=== PATIENT | male | born 1960 | race Caucasian/White ===

== ENCOUNTER 2021-08-10 22:45 | Emergency (ER) | payer OTHER, SELFPAY ==
[2021-08-10 23:41] LABS: #Basophils 0.1 thou/uL (0.0-0.2); #Eosinphils 0.4 thou/uL (0.0-0.7); #Lymphocytes 2.5 thou/uL (1.20-3.40); #Monocytes 0.9 thou/uL (0.11-0.59); #Neutrophils 5.4 thou/uL (1.40-6.50); %Basophils 1.4 % (0.0-1.0); %Eosinophils 4.3 % (0.0-10.0); %Lymphocytes 26.6 % (21.0-51.0); %Monocytes 9.5 % (0.0-10.0); %Neutrophils 58.3 % (42.0-75.0); Hemoglobin 12.9 g/dL (14.0-18.0); Mean Corpuscular HGB CONC 34.5 g/dL (32.0-36.0); Mean Corpuscular Hemoglobin 36.3 pg (27.0-31.0); Platelet Count 197 thou/uL (130-400); RBC Distribution Width 12.7 % (11.5-14.5); Red Blood Cell (RBC) Count 3.56 mill/uL (4.70-6.10); White Blood Cell (WBC) Count 9.3 thou/uL (4.8-10.8)
[2021-08-10 23:56] LABS: ALT (SGPT) 15 U/L (8-55); AST (SGOT) 37 U/L (5-34); Alcohol 373 mg/dL (Less than 10); Alkaline Phosphatase 67 U/L (40-110); Anion Gap 19 mmol/L (10-20); BUN (Urea Nitrogen) 12 mg/dL (8.4-25.7); Bilirubin, Total 0.5 mg/dL (0.2-1.2); Calc. Creatinine Clearance 0 mL/min (70-130); Calcium 8.6 mg/dL (7.8-10.44); Carbon Dioxide 24 mmol/L (23-31); Chloride 97 mmol/L (98-107); Glucose 89 mg/dL (80-115); Potassium 3.9 mmol/L (3.5-5.1); Sodium 136 mmol/L (136-145)
[2021-08-10] MEDS ORDERED: Bacitracin 1 PK ONE (23:59)
[2021-08-11 00:20] LABS: Platelet Morphology Comment Appears Adequate; RBC Morphology Normal
== END 2021-08-11 00:35 ==
LOC: BURERS 22:45
DX: S50.812A Abrasion of left forearm, initial encounter (principal); M54.50 Low back pain, unspecified; F10.129 Alcohol abuse with intoxication, unspecified; I71.4 Abdominal aortic aneurysm, without rupture; J43.9 Emphysema, unspecified; V28.0XXA Motorcycle driver injured in noncollision transport accident in nontraffic accident, initial encounter; Y90.8 Blood alcohol level of 240 mg/100 ml or more
CPT/HCPCS: 36415; 72128; 72131; 80053; 80307; 85025

== ENCOUNTER 2021-11-20 15:55 | Emergency (ER) | payer SELFPAY ==
[2021-11-20] MEDS ORDERED: Aspirin Chewable 81 MG TAB ONE (16:41)
[2021-11-20 16:44] LABS: Hemoglobin 13.1 g/dL (14.0-18.0); Mean Corpuscular HGB CONC 33.5 g/dL (32.0-36.0); Mean Corpuscular Hemoglobin 35.7 pg (27.0-31.0); Mean Platelet Volume 6.7 fL (7.4-10.4); Platelet Count 172 thou/uL (130-400); Red Blood Cell (RBC) Count 3.68 mill/uL (4.70-6.10); White Blood Cell (WBC) Count 7.2 thou/uL (4.8-10.8)
[2021-11-20 16:48] LABS: Band 5 % (5-11); Eosinophils 3 % (0-10); Lymphocytes 15 % (21-51); MDiff Complete? YES; Monocytes 22 % (0-10); Neutrophil 53 % (42-75); Reactive Lymphocytes 2 % (0-10)
[2021-11-20 16:50] LABS: ALT (SGPT) 12 U/L (8-55); AST (SGOT) 29 U/L (5-34); Albumin 3.9 g/dL (3.4-4.8); Alkaline Phosphatase 74 U/L (40-110); Anion Gap 20 mmol/L (10-20); BUN (Urea Nitrogen) 8 mg/dL (8.4-25.7); Bilirubin, Total 0.6 mg/dL (0.2-1.2); Calc. Creatinine Clearance 0 mL/min (70-130); Calcium 8.8 mg/dL (7.8-10.44); Carbon Dioxide 30 mmol/L (23-31); Chloride 90 mmol/L (98-107); Estimated GFR 61; Globulin 3.4 g/dL (2.4-3.5); Glucose 93 mg/dL (80-115); Protein, Total 7.3 g/dL (5.8-8.1); Sodium 137 mmol/L (136-145)
[2021-11-20] MEDS ORDERED: cefTRIAXone\\ROCEPHIN 2 GM VIAL ONE (17:11)
[2021-11-20] MEDS ORDERED: Furosemide 100 MG/10 ML VIAL ONE (17:11)
[2021-11-20] MEDS ORDERED: Potassium Chloride 20 MEQ TAB ONE (17:57)
[2021-11-20] MEDS ORDERED: Nitroglycerin 2% Ointment 1 INCH/1 GM Packet ONE (19:22)
[2021-11-20] MEDS ORDERED: Ketorolac Tromethamine 30 MG/ML VIAL ONE (19:22)
[2021-11-20 20:38] LABS: Troponin I 0.028 ng/mL (< 0.028)
[2021-11-21] MEDS ORDERED: Metoprolol Tartrate 5 MG/5 ML VIAL ONE (08:35)
[2021-11-21 10:41] LABS: Band 2 % (5-11); Eosinophils 3 % (0-10); Hemoglobin 13.4 g/dL (14.0-18.0); Lymphocytes 17 % (21-51); MDiff Complete? YES; Mean Corpuscular HGB CONC 34.5 g/dL (32.0-36.0); Mean Corpuscular Hemoglobin 35.8 pg (27.0-31.0); Mean Platelet Volume 7.1 fL (7.4-10.4); Monocytes 13 % (0-10); Neutrophil 64 % (42-75); Platelet Count 171 thou/uL (130-400); RBC Distribution Width 13.9 % (11.5-14.5); Red Blood Cell (RBC) Count 3.74 mill/uL (4.70-6.10); White Blood Cell (WBC) Count 6.7 thou/uL (4.8-10.8)
[2021-11-21 10:43] LABS: ALT (SGPT) 13 U/L (8-55); AST (SGOT) 27 U/L (5-34); Albumin 3.6 g/dL (3.4-4.8); Alkaline Phosphatase 69 U/L (40-110); Anion Gap 16 mmol/L (10-20); BUN (Urea Nitrogen) 12 mg/dL (8.4-25.7); Bilirubin, Total 0.5 mg/dL (0.2-1.2); Calc. Creatinine Clearance 0 mL/min (70-130); Calcium 8.6 mg/dL (7.8-10.44); Carbon Dioxide 33 mmol/L (23-31); Chloride 94 mmol/L (98-107); Estimated GFR 56; Globulin 3.2 g/dL (2.4-3.5); Glucose 111 mg/dL (80-115); Potassium 3.6 mmol/L (3.5-5.1); Protein, Total 6.8 g/dL (5.8-8.1); Sodium 139 mmol/L (136-145)
[2021-11-21] MEDS ORDERED: Magnesium 2 GM/50 ML BAG (IN WATER) ONE (11:44)
[2021-11-21] MEDS ORDERED: Acetaminophen 500 MG TAB ONE (11:48)
[2021-11-21] MEDS ORDERED: Furosemide 40 MG/4 ML VIAL ONE (15:44)
== END 2021-11-20 18:30 | disposition short-term general hospital (02) ==
LOC: BURERS 15:55
DX: I11.0 Hypertensive heart disease with heart failure (principal); I50.9 Heart failure, unspecified; L03.115 Cellulitis of right lower limb; L03.116 Cellulitis of left lower limb; E87.6 Hypokalemia; F17.210 Nicotine dependence, cigarettes, uncomplicated; Z79.899 Other long term (current) drug therapy
CPT/HCPCS: 36415; 71045; 80053; 83735; 83880; 84484; 85025; 87070; 87077; 87186; 87205; 93005; 94760; 96365; 96367; 96375; 96376; J0696; J1885; J1940

== ENCOUNTER 2023-04-29 10:54 | Emergency (ER) | payer SELFPAY ==
[2023-04-29 11:26] LABS: #Basophils 0.1 thou/uL (0.0-0.2); #Eosinphils 0.2 thou/uL (0.0-0.7); #Lymphocytes 1.8 thou/uL (1.20-3.40); #Monocytes 0.6 thou/uL (0.11-0.59); #Neutrophils 5.3 thou/uL (1.40-6.50); %Basophils 1.2 % (0.0-1.0); %Eosinophils 2.5 % (0.0-10.0); %Monocytes 7.7 % (0.0-10.0); %Neutrophils 66.7 % (42.0-75.0); Hematocrit 34.7 % (42.0-52.0); Hemoglobin 12.3 g/dL (14.0-18.0); Mean Corpuscular HGB CONC 35.3 g/dL (32.0-36.0); Mean Platelet Volume 8.9 fL (7.4-10.4); Platelet Count 142 10x3/uL (130-400); RBC Distribution Width 14.9 % (11.5-14.5); Red Blood Cell (RBC) Count 3.31 mill/uL (4.70-6.10)
[2023-04-29 11:40] LABS: ALT (SGPT) 36 U/L (8-55); AST (SGOT) 141 U/L (5-34); Albumin 3.5 g/dL (3.4-4.8); Alkaline Phosphatase 188 U/L (40-110); Anion Gap 20 mmol/L (10-20); BUN (Urea Nitrogen) Less than 4 mg/dL (8.4-25.7); Bilirubin, Total 3.7 mg/dL (0.2-1.2); Calc. Creatinine Clearance 0 mL/min (70-130); Calcium 8.1 mg/dL (7.8-10.44); Carbon Dioxide 26 mmol/L (23-31); Chloride 90 mmol/L (98-107); Estimated GFR 95; Globulin 3.1 g/dL (2.4-3.5); Glucose 112 mg/dL (80-115); Potassium 3.2 mmol/L (3.5-5.1); Protein, Total 6.6 g/dL (5.8-8.1); Sodium 133 mmol/L (136-145)
[2023-04-29 11:43] LABS: Troponin I 0.041 ng/mL (< 0.028)
[2023-04-29 11:52] LABS: MDiff Complete? YES; Macrocytosis SLIGHT = 6-15 cells (100X) (0-5/hpf); Platelet Adequacy Comment Appears Adequate
[2023-04-29] MEDS ORDERED: Aspirin Chewable 81 MG TAB ONE (12:16)
[2023-04-29] MEDS ORDERED: Furosemide 40 MG (4 mL) VIAL ONE (13:36)
[2023-04-29 14:25] LABS: Acetaminophen Less than 10 mcg/mL (10.0-30.0); Alcohol 317.8 mg/dL (Less than 10); Salicylate Less than 8.0 mg/dL (15.0-30.0)
[2023-04-29 14:43] LABS: Troponin I 0.037 ng/mL (< 0.028)
[2023-04-29] MEDS ORDERED: Acetaminophen 500 MG TAB ONE ×2 (15:07→22:30)
[2023-04-29] MEDS ORDERED: Thiamine 100 MG TAB ONE (19:52)
[2023-04-29] MEDS ORDERED: Folic Acid 1 MG TAB ONE (19:52)
== END 2023-04-29 22:45 | disposition short-term general hospital (02) ==
LOC: BURERS 10:54
DX: I11.0 Hypertensive heart disease with heart failure (principal); I50.9 Heart failure, unspecified; F10.129 Alcohol abuse with intoxication, unspecified; R79.89 Other specified abnormal findings of blood chemistry; I25.2 Old myocardial infarction; J44.9 Chronic obstructive pulmonary disease, unspecified; F17.210 Nicotine dependence, cigarettes, uncomplicated; Z79.899 Other long term (current) drug therapy
CPT/HCPCS: 36415; 71045; 80053; 80307; 83880; 84484; 85025; 96374; J1940

== ENCOUNTER 2023-07-18 19:46 | Emergency (ER) | payer OTHER ==
[2023-07-18 20:32] LABS: #Basophils 0.1 thou/uL (0.0-0.2); #Eosinphils 0.5 thou/uL (0.0-0.7); #Lymphocytes 1.4 thou/uL (1.20-3.40); #Monocytes 0.5 thou/uL (0.11-0.59); %Basophils 1.2 % (0.0-1.0); %Eosinophils 7.5 % (0.0-10.0); %Lymphocytes 21.2 % (21.0-51.0); %Monocytes 7.5 % (0.0-10.0); %Neutrophils 62.6 % (42.0-75.0); Hematocrit 36.4 % (42.0-52.0); Hemoglobin 12.1 g/dL (14.0-18.0); Mean Corpuscular HGB CONC 33.2 g/dL (32.0-36.0); Mean Corpuscular Hemoglobin 34.5 pg (27.0-31.0); Mean Platelet Volume 7.4 fL (7.4-10.4); Platelet Count 116 10x3/uL (130-400); White Blood Cell (WBC) Count 6.4 10x3/uL (4.8-10.8)
[2023-07-18 20:38] LABS: Platelet Adequacy Comment Appears Decreased
[2023-07-18 20:40] LABS: MDiff Complete? YES
[2023-07-18 20:45] LABS: ALT (SGPT) 23 U/L (8-55); AST (SGOT) 69 U/L (5-34); Albumin 3.4 g/dL (3.4-4.8); Alkaline Phosphatase 136 U/L (40-110); Anion Gap 17 mmol/L (10-20); BUN (Urea Nitrogen) 8 mg/dL (8.4-25.7); Bilirubin, Total 1.6 mg/dL (0.2-1.2); Calc. Creatinine Clearance 0 mL/min (70-130); Calcium 8.5 mg/dL (7.8-10.44); Carbon Dioxide 29 mmol/L (23-31); Chloride 86 mmol/L (98-107); Estimated GFR 97; Globulin 2.8 g/dL (2.4-3.5); Glucose 98 mg/dL (80-115); Potassium 4.1 mmol/L (3.5-5.1); Protein, Total 6.2 g/dL (5.8-8.1); Sodium 128 mmol/L (136-145)
[2023-07-18 20:47] LABS: Troponin I 0.022 ng/mL (< 0.028)
[2023-07-18] MEDS ORDERED: methylPREDNISolone Sod Succ/PF 125 MG/2 ML VIAL ONE (21:02)
[2023-07-18] MEDS ORDERED: Albuterol 2.5 MG (0.5 mL) NEB ONE ×2 (21:02→22:00)
[2023-07-18] MEDS ORDERED: Ipratropium Bromide 2.5 ml Neb ONE (21:02)
[2023-07-18] MEDS ORDERED: Doxycycline 100 MG CAP ONE (21:02)
[2023-07-18] MEDS ORDERED: Sodium Chloride For Inhalation 0.9% 3 ML NEB ONE (22:01)
== END 2023-07-19 00:40 | disposition short-term general hospital (02) ==
LOC: BURERS 19:46
DX: J44.9 Chronic obstructive pulmonary disease, unspecified (principal); R09.02 Hypoxemia; I11.0 Hypertensive heart disease with heart failure; I50.9 Heart failure, unspecified; I25.2 Old myocardial infarction; F17.210 Nicotine dependence, cigarettes, uncomplicated; Z79.899 Other long term (current) drug therapy
CPT/HCPCS: 36415; 71045; 80053; 83880; 84484; 85025; 93005; 96374; J2930; J7611